=== PATIENT | female | born 1950 | race African-American/Black ===

== ENCOUNTER 2022-07-28 11:00 | Outpatient (RCR) | payer OTHER, BC, SELFPAY ==
--- NOTE | 2022-06-05 10:19 | PTOPEVAL1 ---
Assessment and note entered by Lauryn Avitia, PT, CLT Evaluation Information Assessment Status Evaluation Diagnosis B LE lymphedema Onset March 2022 Reported Pain Level Pain Score Self Report 2/10, legs tight Assessment PT Clinical Summary Maria C has the diagnosis of B LE lymphedema. She has been wearing 30-40mmHg calf high garments, which are over 1 yr old, and wrapping her lower legs at night. She reports gradual increase in the size of her legs. With the evaluation, the circumferential measurements of her legs have increased since she was last here in 2019: R by 78.1 cm and L by 44.2 cm. There is not any redness of her skin. Dorsum of her feet and toes are edematous. Skilled PT services are indicated for lymphedema care---manual lymph drainage, intermittent compression pump, LE exercises and education for self MLD, HEP and care/management of lymphedema. Plan of Care Interventions Intermittent Compression,Lymphedema Compression Pump ,Manual Lymph Drainage,Patient/Caregiver Education, Therapeutic Exercise PT Services Indicated Yes Treatment Frequency and 3x/wk for 4 weeks Duration These treatments will address the objective and functional deficits as defined above. The patient will be advanced safely and appropriately in order for the patient to progress towards his/her prior level of function. Additional exercises will be introduced and as well as a comprehensive home exercise program upon discharge, if needed, ?to ensure carryover of functional gains achieved in the clinic. This treatment plan has been reviewed and agreement upon by the patient.
--- NOTE | 2022-06-23 10:45 | PCPTNOTE ---
Attempted to call Pt for earlier appointment due to cancellation. Pt's voice mail box was full for . 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
--- NOTE | 2022-06-30 10:55 | PTOPPROG ---
Assessment and note entered by Lauryn Avitia, PT Evaluation Information Assessment Status Progress Diagnosis B LE lymphedema Onset March 2022 Subjective Information Maria C reports:has not ordered the garments yet; is pleased with how her legs look, but top of foot is still swollen; Assessment PT Clinical Summary Maria C has received 12 PT sessions for B LE lymphedema. She has had compression wraps to R LE and is ready for the compression garment, but has not yet ordered it. When the garment is received, will begin the compression wraps to L LE. Compared to the initial evaluation: circumferential measurement of R LE has decreased 47.6 cm and L by 5.5 cm; skin has improved, but continues to have edema over dorsum of R foot and toes, which decreases with lymph drainage. Goals were partially met. Continue PT treatment. Plan of Care Interventions Intermittent Compression,Lymphedema Compression Pu ,Manual Therapy,Patient/Caregiver Education, Therapeutic Activities,Therapeutic Exercise PT Services Indicated Yes These treatments will address the objective and functional deficits as defined above. The patient will be advanced safely and appropriately in order for the patient to progress towards his/her prior level of function. Additional exercises will be introduced and as well as a comprehensive home exercise program upon discharge, if needed, ?to ensure carryover of functional gains achieved in the clinic. This treatment plan has been reviewed and agreement upon by the patient.
--- NOTE | 2022-07-28 12:05 | PTOPPROG ---
Assessment and note entered by Lauryn Avitia, PT, CLT Evaluation Information Assessment Status Progress Diagnosis B LE lymphedema Onset March 2022 Subjective Information Maria C reports: worried about her legs being bigger and getting larger; after she removes the garments/wraps, takes a shower and is up a little bit in the morning, her legs are more swollen; she does not want a home pump; does not want information about night garments--will continue the compression wraps at night; does her self massage and lotions her legs; the compression sock on the L leg has been doing OK; Assessment PT Clinical Summary Maria C has received 24 PT sessions, for R and L LE lymphedema. Circumferential measurements were performed at last treatment session: from bottom of foot to 68 cm: R 775.2 cm and L 734 .1 cm; Compared to last reeval: decreased R by 17.5 cm and L by 35.6 cm and compared to previous treatment in 2019: increased R by 13 cm and L by 4 cm; Her skin integrity is good, without fibrotic tissue, but continues to have edema over dorsum of R foot. She has compression calf high garments for R and L LE, 30-40 mmHg. She has ordered thigh high garments, but has not picked them up yet. The fit of the calf high garments is good, but she expressed concern over tightness over the ankle at the end of the day. She also expressed concern over her legs continue to swell. The goals were partially achieved. Plan for her to continue to wear the compression garments for the next few weeks, then return for a re-check to assess how they are maintaining her lymphedema. Plan of Care PT Services Indicated Yes Treatment Frequency and 0-3x/wk for 5 weeks--reassess in 2 weeks to Duration determine if additional treatment is needed. These treatments will address the objective and functional deficits as defined above. The patient will be advanced safely and appropriately in order for the patient to progress towards his/her prior level of function. Additional exercises will be introduced and as well as a comprehensive home exercise program upon discharge, if needed, ?to ensure carryover of functional gains ac
--- NOTE | 2022-08-16 11:51 | PCPTNOTE ---
pt did not show for today's reevaluation; called pt and left voice message;
--- NOTE | 2022-09-01 10:16 | PCPTNOTE ---
pt called and canceled today's reeval due to bad weather;
--- NOTE | 2022-09-08 09:07 | PCPTNOTE ---
This treatment is being continued on visit number [id number]. Please see documentation on both accounts to view progress. Completed interventions, outcomes, and problems have been marked as Inactive to facilitate the copying of the Care plan routine for recurring accounts.
== END 2022-09-03 23:59 | disposition home or self-care (01) ==
LOC: ANHPT 11:00
DX: I89.0 Lymphedema, not elsewhere classified (principal)
CPT/HCPCS: 29581; 97016; 97140; 97161; 99199

== ENCOUNTER 2022-10-20 11:00 | Outpatient (RCR) | payer OTHER, BC, SELFPAY ==
--- NOTE | 2022-09-08 09:06 | PTOPPROG ---
Assessment and note entered by Lauryn Avitia, PT Evaluation Information Assessment Status Progress Subjective Information Maria C reports: legs are looking good this morning, put a good wrap on them last night; feel like R ankle, top of foot and toes are more swollen; sometimes feet hurt more and swollen, problems walking; continues to wrap her legs every night; have been wearing her old compression socks due to the new ones were too tight, especially the R was uncomfortable and could not wear the new one; has not been doing any leg exercises, other than walking; has not been doing any self massage; discussed home pump- -is not interested in one--not sure when or how she would do it; states over the holiday, have been up, busy and not done things like she should have been. Pain in legs, range 2-8/10; Assessment PT Clinical Summary Maria C was last here on 07-28-22. She returns for follow up assessment: the circumferential measurements of her legs have increased R by 90.4 cm and L by 84.4 cm; she does not have any redness or firmness of tissue over thighs or lower legs; there is fibrotic tissue of dorsum of feet and toes. Skin is dry and flaking. Continue PT treatment for lymphedema of R and L LE 's: multilayer compression wraps, manual lymph drainage, reassessment of her compression garments , since previous ones are NOT maintaining her legs . REeducate pt and reinforce self care of lymphedema. Plan of Care Interventions Intermittent Compression,Lymphedema Compression Pump ,Manual Lymph Drainage,Patient/Caregiver Education, Therapeutic Exercise PT Services Indicated Yes Treatment Frequency and 0-3x/wk for 6 weeks, due to availability of Duration therapist and pt out of town for one week These treatments will address the objective and functional deficits as defined above. The patient will be advanced safely and appropriately in order for the patient to progress towards his/her prior level of function. Additional exercises will be introduced and as well as a comprehensive home exercise program upon discharge, if needed, ?to ensure carryover of functional gains achieved in the clinic. This treatment plan has been reviewed and agreement upon by the patient.
--- NOTE | 2022-09-08 09:14 | PCPTNOTE ---
This treatment is being continued from previous visit number [id number]. Please see documentation on both accounts to view progress. Completed interventions, outcomes, and problems have been marked as Inactive to facilitate the copying of the Care plan routine for recurring accounts.
--- NOTE | 2022-10-20 12:05 | PTOPDC ---
Assessment and note entered by Lauryn Avitia, PT, CLT Evaluation Information Assessment Status Discharge Subjective Information Maria C reports: R leg is still swollen, L leg is good; have been wrapping legs at night and sometimes wear during the day; when she has taoism or event--will wear the compression knee highs--the new Medi garments or sometimes wear the OLD garments if R leg is swollen; Is not interested in a home compression pump or night garment; Will continue to use the compression wraps on her legs; Reported Pain Level Pain Score 0: Self Report Assessment PT Clinical Summary Maria C has received 36 PT sessions. Compared to the last reevaluation, her circumferential measurements of her legs have decreased: R by 82.4 cm and L by 108.3 cm; When compared to her 2019 measurements, her R leg is 20 cm more and L leg is 20 sm less; Lymphedema education completed; The goals were achieved. Discharge PT services. Maria C continues to be frustrated about her continued issues with lymphedema and changes in her leg size. Education has been completed and she knows how to assist with managing her lymphedema. Recommendations were made for a home intermittent compression pump, velcro garments or night garments--she is not interested in. She continues to wrap her legs with short stretch bandages that are old, stretched out and using old compression garments that are stretched out. She inconsistently does her self massage and is not good to elevate her legs. Plan of Care PT Services Indicated No
== END 2022-10-20 13:32 | disposition home or self-care (01) ==
LOC: ANHPT 11:00
DX: I89.0 Lymphedema, not elsewhere classified (principal)
CPT/HCPCS: 29581; 97016; 97140

== ENCOUNTER 2025-02-04 09:00 | Outpatient (RCR) | payer OTHER, BC, SELFPAY ==
--- NOTE | 2024-11-07 17:21 | OTOPEVAL1 ---
Assessment and note entered by Aleida Funez OT Evaluation Information Assessment Status Evaluation Diagnosis lymphedema ICD-10 Condition Codes (OT) Lymphedema I89.0 Subjective Information Pt. states that from childhood around age 13 or 14 , she would having swelling in R LE, doctor would come wrap her leg. Pt. reports overtime the swelling has gotten worse, and now effects her in bilateral LE. Pt. states she requires constant management of condition, and it takes only several hours without garments for swelling to be noticeable. Pt. reports she has a history of falling, and is concerned as she gets older that that she has greater concern for falling. Pt. states she is not sure if her falls are contributable to her falls. Pt. 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 Reported Pain Level Pain Score 0: Self Report Additional Pain Score Comments Pt. reports she has arthritis, but states that she has intermittent chronic pain in knees and hands Assessment OT Clinical Summary Pt. is 74 year old F, presents independently without use of mobility device, with stage 3 lymphedema, with positive stemmer sign, dorsal foot swelling, and stating she had an onset of swelling in R LE around the age of 12-13 years of age. Pt. reports that now has bilateral LE swelling R greater than L, with onset about 15 years. Pt. has received complete decongestive treatment at this clinic previously, thinking it to be greater than 4 years ago. Pt. reports her piece dye worker recommended a compression pump, which she purchased, pt. reports she regularly uses the pump daily for 1 hour, bilaterally. Pt. reports she last ordered custom garments about a year and a half, which she states she wears regularly; pt. wearing garments today, which appear worn out with holes. Pt. displays difficulty recalling timeline of condition and possible memory deficits. Pt. will benefit from intensive phase of complete decongestive therapy with certified lymphedema therapist, completing manual lymph drainage and compression bandage wrapping for volume reduction of limb and management of condition, to educate pt. on condition, management of condition Plan of Care Interventions Therapeutic Exercise,Manual Therapy,Therapeutic Activities,Self-Care/Home Management OT Services Indicated Yes These treatments will address the objective and functional deficits as defined above. The patient will be advanced safely and appropriately in order for the patient to progress towards his/her prior level of function. Additional exercises will be introduced and as well as a comprehensive home exercise program upon discharge, if needed, ?to ensure carryover of functional gains achieved in the clinic. This treatment plan has been reviewed and agreement upon by the patient.
--- NOTE | 2024-12-03 11:44 | OTOPPROG ---
Assessment and note entered by Aleida Funez OT Evaluation Information Assessment Status Evaluation Diagnosis lymphedema ICD-10 Condition Codes (OT) Lymphedema I89.0 Subjective Information Pt. states can you believe it? I have ankles., Whenever I get reduced, I can finally see my ankles, it's just great. Assessment OT Clinical Summary Pt. is 74 year old F, presents on 12th visit with BLE stage 3 lymphedema, with positive stemmer sign , dorsal foot swelling. Pt. is active in intensive phase to treatment, during sessions in which manual lymph drainage is completed addressing bilateral LE, with compression bandage wrapping of R LE, compression pump use on R LE during sessions, and L LE use of compression pump during sessions and with home pump. Pt. displays R LE reduced by 152.85 cm, L LE reduced by 33.75 cm. Pt . continues to be educated on condition, treatment expectations, HEP, and self manual lymph drainage , agreeable to treatment while demonstrating progress. Plan of Care Interventions Therapeutic Exercise,Manual Therapy,Therapeutic Activities,Self-Care/Home Management OT Services Indicated Yes These treatments will address the objective and functional deficits as defined above. The patient will be advanced safely and appropriately in order for the patient to progress towards his/her prior level of function. Additional exercises will be introduced and as well as a comprehensive home exercise program upon discharge, if needed, ?to ensure carryover of functional gains achieved in the clinic. This treatment plan has been reviewed and agreement upon by the patient.
--- NOTE | 2024-12-15 11:23 | PCOTNOTE ---
Addendum to pt's evaluation on 11/07/24, pt. was seen for 60 minutes of evaluation, not 0 as noted in the evaluation document
--- NOTE | 2024-12-24 11:40 | OTOPPROG ---
Assessment and note entered by Aleida Funez OT Progress Report Information Assessment Status Progress Diagnosis lymphedema ICD-10 Condition Codes (OT) Lymphedema I89.0 Subjective Information Pt. reports, I know we are making progress, I haven't had my foot look this small in a while, but I want to have this all done by March. I'm going on a trip in March and I don't want to have to be managing all of this. Assessment OT Clinical Summary Pt. is 74 year old F, presents on 20th visit with BLE stage 3 lymphedema, with positive stemmer sign , dorsal foot swelling. Pt. is active in intensive phase to treatment, during sessions in which manual lymph drainage is completed addressing bilateral LE, with compression bandage wrapping of R LE, compression pump use on R LE during sessions, and L LE use of compression pump during sessions and with home pump. Pt. displays R LE reduced by 128.35 cm , L LE reduced by 32.25 cm. Pt. continues to be educated on condition, treatment expectations, HEP, and self manual lymph drainage, agreeable to treatment while demonstrating progress. Pt. 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 Plan of Care Interventions Therapeutic Exercise,Manual Therapy,Therapeutic Activities,Self-Care/Home Management OT Services Indicated Yes These treatments will address the objective and functional deficits as defined above. The patient will be advanced safely and appropriately in order for the patient to progress towards his/her prior level of function. Additional exercises will be introduced and as well as a comprehensive home exercise program upon discharge, if needed, ?to ensure carryover of functional gains achieved in the clinic. This treatment plan has been reviewed and agreement upon by the patient.
--- NOTE | 2024-12-24 17:08 | OPREHPOC ---
Outpatient Therapy Plan of Care This is a Multidisciplinary Plan of Care that may contain components documented by all disciplines (PT, OT, and ST.) OT Problem 1 OT Problem #1 Knowledge Deficit OT Goal 1 Goal / Goal Update Pt. will independently demonstrate participation in HEP Pt. will participate in self manual lymph drainage sequence 5/7 days per week Pt. will demonstrate knowledge of intensive phase of treatment vs. maintenance phase of treatment Pt. will maintain schedule for use of compression pump at home on unwrapped LE 4/7 days per week Progress Note 12/03 1) Pt. continues to require instruction and reminders to complete HEP; goal met, continue for continuity 2) Pt. continues to be educated on sequence and technique, reports doing partial sequence; goal not consistently met continue with goal for continuity in transition to maintenance phase 3) Pt. continues to question and requiring repeated education, instruction, and clarification to differentiate intensive phase vs. maintained phase; goal not met, continue with goal 4) Pt. reports she completes use of compression pump at home L LE average of 5/7 days per week; goal met, continue for continuity Progress note 12/24 1) Pt. reports consistent participation in HEP at home at least 4/7 days per week 2) Pt. continues to be educated on sequence and technique with report of increased follow through with handout 3) Pt. demonstrates understanding of intensive phase of treatment, requires continued education on eventual transition to maintenance phase 4) Pt. reports she completes use of compression pump at home L LE average of 5/7 days per week Target Visit 30 Progress Partially Met OT Problem 2 OT Problem #2 Impaired Balance OT Goal 1 Goal / Goal Update Pt. will demonstrate safety regarding fall risks and report no falls in community during duration of treatment; goal met Progress note 12/03 Pt. reports no falls during duration of treatment so far. Continue goal to monitor for continued safety awareness Progress note 12/24 Pt. reports no falls during duration of treatment so far. Continue goal to monitor for continued safety awareness Target Visit 20 Progress Met OT Problem 3 OT Problem #3 Impaired Lymphatic System OT Goal 1 Goal / Goal Update Pt. will display 20 cm reduction in wrapped LE limb volume through intensive phase of treatment; goal met; pt. has reduced 160.6 cm in BLE; Update goal Progress note 12/24 Pt. will reduce volume of BLE to 650 cm per LE Target Visit 40
--- NOTE | 2025-01-16 11:34 | OTOPPROG ---
Assessment and note entered by Aleida Funez OT Progress Note Information Assessment Status Progress Diagnosis lymphedema ICD-10 Condition Codes (OT) Lymphedema I89.0 Subjective Information Pt. reports she went to manager public yesterday and reports it went great. She reports having nerve conduction testing on Sunday. States that manager public does not have specific diagnosis for why her toes and foot are intermittently hurting. Pt. states she removed foam around each toe for manager public appointment yesterday Assessment OT Clinical Summary Pt. is 74 year old F, presents on 30 visit with BLE stage 3 lymphedema, with positive stemmer sign , dorsal foot swelling. Pt. is active in intensive phase to treatment, during sessions in which manual lymph drainage is completed addressing bilateral LE, with compression bandage wrapping of R LE, compression pump use on R LE during sessions, and L LE use of compression pump during sessions and with home pump. Pt. displays R LE reduced by 132.75 cm , L LE reduced by 37.5 cm. Pt . continues to be educated on condition, treatment expectations, HEP, and self manual lymph drainage , agreeable to treatment while demonstrating progress, but requires frequent reeducation and instruction, often loosening or removing garments . Pt. 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 Plan of Care Interventions Therapeutic Exercise,Manual Therapy,Therapeutic Activities,Self-Care/Home Management OT Services Indicated Yes Treatment Frequency and 3x/week for 10 visits Duration These treatments will address the objective and functional deficits as defined above. The patient will be advanced safely and appropriately in order for the patient to progress towards his/her prior level of function. Additional exercises will be introduced and as well as a comprehensive home exercise program upon discharge, if needed, ?to ensure carryover of functional gains achieved in the clinic. This treatment plan has been reviewed and agreement upon by the patient.
--- NOTE | 2025-01-16 11:35 | OPREHPOC ---
Outpatient Therapy Plan of Care This is a Multidisciplinary Plan of Care that may contain components documented by all disciplines (PT, OT, and ST.) OT Problem 1 OT Problem #1 Knowledge Deficit OT Goal 1 Goal / Goal Update Pt. will independently demonstrate participation in HEP Pt. will participate in self manual lymph drainage sequence 5/7 days per week Pt. will demonstrate knowledge of intensive phase of treatment vs. maintenance phase of treatment Pt. will maintain schedule for use of compression pump at home on unwrapped LE 4/7 days per week Progress Note 12/03 1) Pt. continues to require instruction and reminders to complete HEP; goal met, continue for continuity 2) Pt. continues to be educated on sequence and technique, reports doing partial sequence; goal not consistently met continue with goal for continuity in transition to maintenance phase 3) Pt. continues to question and requiring repeated education, instruction, and clarification to differentiate intensive phase vs. maintained phase; goal not met, continue with goal 4) Pt. reports she completes use of compression pump at home L LE average of 5/7 days per week; goal met, continue for continuity Progress note 12/24 1) Pt. reports consistent participation in HEP at home at least 4/7 days per week 2) Pt. continues to be educated on sequence and technique with report of increased follow through with handout 3) Pt. demonstrates understanding of intensive phase of treatment, requires continued education on eventual transition to maintenance phase 4) Pt. reports she completes use of compression pump at home L LE average of 5/7 days per week Progress 01/16 Making Progress Target Visit 40 Progress Partially Met OT Problem 2 OT Problem #2 Impaired Balance OT Goal 1 Goal / Goal Update Pt. will demonstrate safety regarding fall risks and report no falls in community during duration of treatment; goal met Progress note 12/03 Pt. reports no falls during duration of treatment so far. Continue goal to monitor for continued safety awareness Progress note 12/24 Pt. reports no falls during duration of treatment so far. Continue goal to monitor for continued safety awareness Target Visit 30 Progress Met OT Problem 3 OT Problem #3 Impaired Lymphatic System OT Goal 1 Goal / Goal Update Pt. will display 20 cm reduction in wrapped LE limb volume through intensive phase of treatment; goal met; pt. has reduced 160.6 cm in BLE; Update goal Progress note 12/24 Pt. will reduce volume of BLE to 650 cm per LE Progress note 01/16 Progress made, goal not met Target Visit 40 Progress Partially Met
--- NOTE | 2025-02-06 12:03 | PCOTNOTE ---
This treatment is being continued on visit number [id number]. Please see documentation on both accounts to view progress. Completed interventions, outcomes, and problems have been marked as Inactive to facilitate the copying of the Care plan routine for recurring accounts.
--- NOTE | 2025-02-06 12:04 | PCOTNOTE ---
The treatment documented on this account is a continuation of the treatment documented on visit number [id number]. Please see documentation on both accounts to view progress. The Plan of Care has been transitioned and updated within the new [id number]. I have addressed and agree with the discipline specific Problems, Interventions, and Goals for the current certification period. Completed interventions, outcomes, and problems have been marked as Inactive to facilitate the copying of the Care plan routine for recurring accounts.
== END 2025-02-05 23:59 | disposition home or self-care (01) ==
LOC: ANHOT 09:00
DX: I89.0 Lymphedema, not elsewhere classified (principal)
CPT/HCPCS: 29581; 97016; 97110; 97140; 97165; 97530; 97535

== ENCOUNTER 2025-04-15 10:00 | Outpatient (RCR) | payer OTHER, BC, SELFPAY ==
--- NOTE | 2025-02-16 12:23 | OTOPPROG ---
Assessment and note entered by Aleida Funez OT Progress Note Information Assessment Status Evaluation Assessment OT Clinical Summary Pt. is 74 year old F, presents on 41th visit with BLE stage 3 lymphedema, with positive stemmer sign , dorsal foot swelling. Pt. is active in intensive phase to treatment, during sessions in which manual lymph drainage is completed addressing bilateral LE, with compression bandage wrapping of L LE, compression pump use on L LE during sessions. L LE measures a decrease of 72.5 cm from inital evaluation, and R LE measures a decrease of 77 cm from initial evaluation. Pt. received incorrect velcro garment for R LE and has not received R LE compression stockings, resulting in return of some fluid to R LE, which pt. continues to manage at home with wear of calf velcro garment and loaned foot velcro garment with chang dorsum foam, night time garments, and home compression pump . Pt. continues to be educated on condition, treatment expectations, HEP, and self manual lymph drainage, agreeable treatment while demonstrating progress, but requires frequent reeducation and instruction, with decreased arrival at treatments with compression bandages loosened. Pt. 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 Plan of Care Interventions Therapeutic Exercise,Manual Therapy,Therapeutic Activities,Self-Care/Home Management OT Services Indicated Yes Treatment Frequency and 3x/week for 10 visits Duration These treatments will address the objective and functional deficits as defined above. The patient will be advanced safely and appropriately in order for the patient to progress towards his/her prior level of function. Additional exercises will be introduced and as well as a comprehensive home exercise program upon discharge, if needed, ?to ensure carryover of functional gains achieved in the clinic. This treatment plan has been reviewed and agreement upon by the patient.
--- NOTE | 2025-02-16 12:23 | OPREHPOC ---
Outpatient Therapy Plan of Care This is a Multidisciplinary Plan of Care that may contain components documented by all disciplines (PT, OT, and ST.) OT Problem 1 OT Problem #1 Knowledge Deficit OT Goal 1 Goal / Goal Update Pt. will independently demonstrate participation in HEP Pt. will participate in self manual lymph drainage sequence 5/7 days per week Pt. will demonstrate knowledge of intensive phase of treatment vs. maintenance phase of treatment Pt. will maintain schedule for use of compression pump at home on unwrapped LE 4/7 days per week Progress Note 12/03 1) Pt. continues to require instruction and reminders to complete HEP; goal met, continue for continuity 2) Pt. continues to be educated on sequence and technique, reports doing partial sequence; goal not consistently met continue with goal for continuity in transition to maintenance phase 3) Pt. continues to question and requiring repeated education, instruction, and clarification to differentiate intensive phase vs. maintained phase; goal not met, continue with goal 4) Pt. reports she completes use of compression pump at home L LE average of 5/7 days per week; goal met, continue for continuity Progress note 12/24 1) Pt. reports consistent participation in HEP at home at least 4/7 days per week 2) Pt. continues to be educated on sequence and technique with report of increased follow through with handout 3) Pt. demonstrates understanding of intensive phase of treatment, requires continued education on eventual transition to maintenance phase 4) Pt. reports she completes use of compression pump at home L LE average of 5/7 days per week Progress 01/16 1) continue with goal 2) continue with goal 3) continue with goal 4) continue with goal Progress 02/16 1) Pt. reports she is consistent with HEP at least 4/7 days of the week, continue for consistency into maintenance phase 2) Pt. returns verbal demonstration of self manual lymph drainage sequence, continue with goal for consistency into maintenance phase 3) Goal Met, discontinue goal 4) Goal Met, continue goal for consistency into maintenance phase Target Visit 50 Progress Partially Met OT Problem 2 OT Problem #2 Impaired Balance OT Goal 1 Goal / Goal Update Pt. will demonstrate safety regarding fall risks and report no falls in community during duration of treatment; goal met Progress note 12/03 Pt. reports no falls during duration of treatment so far. Continue goal to monitor for continued safety awareness Progress note 12/24 Pt. reports no falls during duration of treatment so far. Continue goal to monitor for continued safety awareness Progress note 02/16/25 1) Pt. continues to report no falls during treatment. Continue goal for consistency into maintenance phase. Target Visit 30 Progress Met OT Problem 3 OT Problem #3 Impaired Lymphatic System OT Goal 1 Goal / Goal Update Pt. will display 20 cm reduction in wrapped LE limb volume through intensive phase of treatment; goal met; pt. has reduced 160.6 cm in BLE; Update goal Progress note 12/24 Pt. will reduce volume of BLE to 650 cm per LE Progress note 01/16 Progress made, goal not met Progress note 02/16/25 1) Goal not met. Pt. decreased to R LE 726.5 cm, and L LE to 681.75, continue goal Target Visit 50 Progress Partially Met
--- NOTE | 2025-02-16 12:40 | OTOPPROG ---
Assessment and note entered by Aleida Funez, OT Evaluation Information Assessment Status Evaluation Assessment OT Clinical Summary Pt. is 74 year old F, presents on 41th visit with BLE stage 3 lymphedema, with positive stemmer sign , dorsal foot swelling. Pt. is active in intensive phase to treatment, during sessions in which manual lymph drainage is completed addressing bilateral LE, with compression bandage wrapping of L LE, compression pump use on L LE during sessions. L LE measures a decrease of 72.5 cm from inital evaluation, and R LE measures a decrease of 77 cm from initial evaluation. Pt. received incorrect velcro garment for R LE and has not received R LE compression stockings, resulting in return of some fluid to R LE, which pt. continues to manage at home with wear of calf velcro garment and loaned foot velcro garment with chang dorsum foam, night time garments, and home compression pump . Pt. continues to be educated on condition, treatment expectations, HEP, and self manual lymph drainage, agreeable treatment while demonstrating progress, but requires frequent reeducation and instruction, with decreased arrival at treatments with compression bandages loosened. Pt. will benefit from continued complete decongestive therapy to address continued softening and volume reduction of R LE specifically foot and ankle, and to address L LE with intensive phase of treatment with use of short stretch compression bandages to reduce volume of limb and facilitate pt.'s capacity for half-way management of condition. Medi order entry representative present at previous treatment with recommendations for custom compression garments, as follows: -Custom medi 550, CCL2, knee-high, closed toe, steep oblique, Y knitting barbie, 5cm silicone top band, color: black x1L -Custom medi 550, CCL2, knee-high, open toe, steep oblique, Y knitting barbie, 5cm silicone top band, color: black, x1L -Custom medi 550 SL toe cap, CCL2, individual toe cap, open toes, color: black x1L Pt. Requires custom Medi 550 CCL2 knee high stockings for the R and L LE to address and mange stage 2/3 lymphedema. The wall stability of the circular knit garments in inadequate. Pt. requires individual toe caps to address digit swelling and dense fibrotic tissue with Y knitting barbie due to decreased ankle continue and risk of skin break downs, and 5cm silicone top band to prevent distal migration while ambulating Plan of Care Interventions Therapeutic Exercise,Manual Therapy,Therapeutic Activities,Self-Care/Home Management OT Services Indicated Yes Treatment Frequency and 3x/week for 10 visits Duration These treatments will address the objective and functional deficits as defined above. The patient will be advanced safely and appropriately in order for the patient to progress towards his/her prior level of function. Additional exercises will be introduced and as well as a comprehensive home exercise program upon discharge, if needed, ?to ensure carryover of functional gains achieved in the clinic. This treatment plan has been reviewed and agreement upon by the patient.
--- NOTE | 2025-02-16 12:52 | OPREHPOC ---
Outpatient Therapy Plan of Care This is a Multidisciplinary Plan of Care that may contain components documented by all disciplines (PT, OT, and ST.) OT Problem 1 OT Problem #1 Knowledge Deficit OT Goal 1 Goal / Goal Update Pt. will independently demonstrate participation in HEP Pt. will participate in self manual lymph drainage sequence 5/7 days per week Pt. will demonstrate knowledge of intensive phase of treatment vs. maintenance phase of treatment Pt. will maintain schedule for use of compression pump at home on unwrapped LE 4/7 days per week Progress Note 12/03 1) Pt. continues to require instruction and reminders to complete HEP; goal met, continue for continuity 2) Pt. continues to be educated on sequence and technique, reports doing partial sequence; goal not consistently met continue with goal for continuity in transition to maintenance phase 3) Pt. continues to question and requiring repeated education, instruction, and clarification to differentiate intensive phase vs. maintained phase; goal not met, continue with goal 4) Pt. reports she completes use of compression pump at home L LE average of 5/7 days per week; goal met, continue for continuity Progress note 12/24 1) Pt. reports consistent participation in HEP at home at least 4/7 days per week 2) Pt. continues to be educated on sequence and technique with report of increased follow through with handout 3) Pt. demonstrates understanding of intensive phase of treatment, requires continued education on eventual transition to maintenance phase 4) Pt. reports she completes use of compression pump at home L LE average of 5/7 days per week Progress 01/16 1) continue with goal 2) continue with goal 3) continue with goal 4) continue with goal Progress 02/16 1) Pt. reports she is consistent with HEP at least 4/7 days of the week, continue for consistency into maintenance phase 2) Pt. returns verbal demonstration of self manual lymph drainage sequence, continue with goal for consistency into maintenance phase 3) Goal Met, discontinue goal 4) Goal Met, continue goal for consistency into maintenance phase Target Visit 50 Progress Partially Met OT Problem 2 OT Problem #2 Impaired Balance OT Goal 1 Goal / Goal Update Pt. will demonstrate safety regarding fall risks and report no falls in community during duration of treatment; goal met Progress note 12/03 Pt. reports no falls during duration of treatment so far. Continue goal to monitor for continued safety awareness Progress note 12/24 Pt. reports no falls during duration of treatment so far. Continue goal to monitor for continued safety awareness Progress note 02/16/25 1) Pt. continues to report no falls during treatment. Continue goal for consistency into maintenance phase. Target Visit 30 Progress Met OT Problem 3 OT Problem #3 Impaired Lymphatic System OT Goal 1 Goal / Goal Update Pt. will display 20 cm reduction in wrapped LE limb volume through intensive phase of treatment; goal met; pt. has reduced 160.6 cm in BLE; Update goal Progress note 12/24 Pt. will reduce volume of BLE to 650 cm per LE Progress note 01/16 Progress made, goal not met Progress note 02/16/25 1) Goal not met. Pt. decreased to R LE 726.5 cm, and L LE to 681.75, continue goal Target Visit 50 Progress Partially Met
--- NOTE | 2025-03-11 11:47 | OTOPEVAL1 ---
Assessment and note entered by Aleida Funez OT Pt[employer] Information Assessment Status Evaluation Subjective Information Pt. reports her L toe caps have arrived and they fit well with her L open toe garment. Pt. reports she is experiencing increased swelling bilaterally with wear of new compression garments in comparison just after compression bandaging. Pt. reports that her R toe caps are not measured right they feel too tight and restrictive. Pt. states she has not been wearing toe caps and open toe compression stocking on R LE due to this, wearing only her closed toe compression garment. Pt. reports she is using compression pump with BLEs attached everyday for 45 minutes - 1 hour. Pt . reports she is sitting and standing often, but is also walking regularly, unclear regarding frequency to elevation and issued exercises, despite clarifying questions to freqency. Reported Pain Level Pain Score 0: Self Report Assessment OT Clinical Summary Pt. is 74 year old F, presents on 51th visit with BLE stage 3 lymphedema, with positive stemmer sign , dorsal foot swelling. Pt. is transitioning to maintenance phase of treatment, wearing custom below knee compression garments, with visual display of swelling symptoms compared to reduction immediately after removal of short stretch compression bandages. Pt. displays L LE measures a decrease of 80 cm from initial evaluation, and R LE measures a decrease of 111.5 com cm from initial evaluation. Pt. continues to be educated on condition, treatment expectations, HEP, and self manual lymph drainage, agreeable in treatment while demonstrating progress, but requires frequent reeducation and instruction. Pt. will benefit from continued complete decongestive therapy in clinic, with reduced frequency of treatment during transition from intensive phase of treatment to maintenance phase, to facilitate likelihood of increased compliance and knowledge regarding maintenance phase of treatment at discharge Plan of Care Interventions Therapeutic Exercise,Manual Therapy,Therapeutic Activities,Self-Care/Home Management OT Services Indicated Yes Treatment Frequency and 2x/wk for 10 visits Duration These treatments will address the objective and functional deficits as defined above. The patient will be advanced safely and appropriately in order for the patient to progress towards his/her prior level of function. Additional exercises will be introduced and as well as a comprehensive home exercise program upon discharge, if needed, ?to ensure carryover of functional gains achieved in the clinic. This treatment plan has been reviewed and agreement upon by the patient.
--- NOTE | 2025-03-11 11:48 | OPREHPOC ---
Outpatient Therapy Plan of Care This is a Multidisciplinary Plan of Care that may contain components documented by all disciplines (PT, OT, and ST.) OT Problem 1 OT Problem #1 Knowledge Deficit OT Goal 1 Goal / Goal Update Pt. will independently demonstrate participation in HEP Pt. will participate in self manual lymph drainage sequence 5/7 days per week Pt. will demonstrate knowledge of intensive phase of treatment vs. maintenance phase of treatment Pt. will maintain schedule for use of compression pump at home on unwrapped LE 4/7 days per week Progress Note 12/03 1) Pt. continues to require instruction and reminders to complete HEP; goal met, continue for continuity 2) Pt. continues to be educated on sequence and technique, reports doing partial sequence; goal not consistently met continue with goal for continuity in transition to maintenance phase 3) Pt. continues to question and requiring repeated education, instruction, and clarification to differentiate intensive phase vs. maintained phase; goal not met, continue with goal 4) Pt. reports she completes use of compression pump at home L LE average of 5/7 days per week; goal met, continue for continuity Progress note 12/24 1) Pt. reports consistent participation in HEP at home at least 4/7 days per week 2) Pt. continues to be educated on sequence and technique with report of increased follow through with handout 3) Pt. demonstrates understanding of intensive phase of treatment, requires continued education on eventual transition to maintenance phase 4) Pt. reports she completes use of compression pump at home L LE average of 5/7 days per week Progress 01/16 1) continue with goal 2) continue with goal 3) continue with goal 4) continue with goal Progress 02/16 1) Pt. reports she is consistent with HEP at least 4/7 days of the week, continue for consistency into maintenance phase 2) Pt. returns verbal demonstration of self manual lymph drainage sequence, continue with goal for consistency into maintenance phase 3) Goal Met, discontinue goal 4) Goal Met, continue goal for consistency into maintenance phase Progress note 03/11 1) Continue with goal for consistency 2) Continue with goal for consistency 4) Continue with goal for consistency Target Visit 60 Progress Partially Met OT Problem 2 OT Problem #2 Impaired Balance OT Goal 1 Goal / Goal Update Pt. will demonstrate safety regarding fall risks and report no falls in community during duration of treatment; goal met Progress note 12/03 Pt. reports no falls during duration of treatment so far. Continue goal to monitor for continued safety awareness Progress note 12/24 Pt. reports no falls during duration of treatment so far. Continue goal to monitor for continued safety awareness Progress note 02/16/25 1) Pt. continues to report no falls during treatment. Continue goal for consistency into maintenance phase. 03/11 Progress 1) Goal met, discontinue Target Visit 30 Progress Met OT Problem 3 OT Problem #3 Impaired Lymphatic System OT Goal 1 Goal / Goal Update Pt. will display 20 cm reduction in wrapped LE limb volume through intensive phase of treatment; goal met; pt. has reduced 160.6 cm in BLE; Update goal Progress note 12/24 Pt. will reduce volume of BLE to 650 cm per LE Progress note 01/16 Progress made, goal not met Progress note 02/16/25 1) Goal not met. Pt. decreased to R LE 726.5 cm, and L LE to 681.75, continue goal 03/11 Progress note 1) Not met, Update goal 1A) Pt will maintain reduction of R LE to < 695 cm and L LE to < 675 com Target Visit 60 Progress Partially Met
--- NOTE | 2025-04-15 12:23 | OTOPDC ---
Assessment and note entered by Aleida Funez, OT, CLT Discharge Note Assessment Status Discharge Diagnosis lymphedema ICD-10 Condition Codes (OT) Lymphedema I89.0 Subjective Information Pt. reports continued compliance with compression garment wear and home compression pump. Pt. reports she would wear her night time compression garments continuously if she could due to comfort and efficacy. Pt. reports she feels comfortable with management stage of condition after review on this date. Reported Pain Level Pain Score 0: Self Report Assessment OT Clinical Summary Pt. is 74 year old F, presents on 56th visit with BLE stage 3 lymphedema, with positive stemmer sign , dorsal foot swelling. Pt. is transitioning to maintenance phase of treatment, wearing custom below knee compression garments. Pt. displays L LE measurement maintained with a decrease of 58.25 cm from initial evaluation, and R LE measures a decrease of 142.25 cm from initial evaluation. Pt. educated on condition, HEP, self manual lymph drainage, schedule and use of compression pump, schedule of garment wear and care including variations in wear of day time and night time garments. Pt. is discharged on this date to complete maintenance phase of treatment independently, as pt. has demonstrated adequate knowledge and follow through of instruction and training with all necessary garments and equipment . Plan of Care OT Services Indicated Yes
== END 2025-04-22 11:42 | disposition home or self-care (01) ==
LOC: ANHOT 10:00
DX: I89.0 Lymphedema, not elsewhere classified (principal)
CPT/HCPCS: 29581; 97016; 97140; 97165; 97530; 97535